=== PATIENT | female | born 1940 | race Caucasian/White ===

== ENCOUNTER 2022-12-31 21:32 | Emergency (ER) | payer MEDICARE ==
[2022-12-31] MEDS ORDERED: Sodium Chloride 0.9% 10 ML Syringe FLUSH PRN (21:38)
[2022-12-31] MEDS ORDERED: Aspirin 81 MG Tab.Chew PO ONE (21:47)
[2022-12-31] MEDS ORDERED: Nitroglycerin 0.4 MG Tab.SL SL ONE ×2 (21:58→22:36)
[2022-12-31 22:14] LABS: TROPONIN I HIGH SENSITIVITY 23.5 pg/mL (<=60.3)
[2023-01-01] MEDS ORDERED: Heparin Sodium 5,000 Units/ML Vial IVPUSH ONE (00:23)
[2023-01-01] MEDS ORDERED: Morphine 2 MG/ML SYRINGE IVPUSH ONE (00:24)
[2023-01-01] MEDS ORDERED: Sodium Chloride 0.9% 1,000 ML IV SCH (00:30)
[2023-01-01] MEDS ORDERED: Heparin Sodium/D5W 25,000 UNITS/500 ML BAG IV SCH (00:30)
[2023-01-01] MEDS ORDERED: Nitroglycerin/D5W 25 MG/250 ML BOTTLE IV SCH (00:45)
== END 2023-01-01 02:00 ==
LOC: JP.ED 21:32
DX: I21.4 Non-ST elevation (NSTEMI) myocardial infarction (principal); E78.5 Hyperlipidemia, unspecified; I10 Essential (primary) hypertension; Z88.1 Allergy status to other antibiotic agents; Z88.2 Allergy status to sulfonamides; Z91.040 Latex allergy status; Z79.899 Other long term (current) drug therapy
CPT/HCPCS: 36415; 71045; 80048; 84484; 85025; 85610; 85730; 93005; 96365; 96368; 96375; 99285; A9270; J1644; J3490; J7030

== ENCOUNTER 2023-01-08 16:45 | Emergency (ER) | payer MEDICARE ==
[2023-01-08] MEDS ORDERED: Nitroglycerin 0.4 MG Tab.SL SL ONE (17:05)
== END 2023-01-08 17:53 | disposition home or self-care (01) ==
LOC: JP.ED 16:45
DX: I51.81 Takotsubo syndrome (principal); I25.2 Old myocardial infarction; M19.90 Unspecified osteoarthritis, unspecified site; E11.9 Type 2 diabetes mellitus without complications; Z88.8 Allergy status to other drugs, medicaments and biological substances; Z91.040 Latex allergy status; Z88.2 Allergy status to sulfonamides; Z79.82 Long term (current) use of aspirin; Z79.899 Other long term (current) drug therapy
CPT/HCPCS: 99284; A9270

== ENCOUNTER 2023-02-23 14:59 | Emergency (ER) | payer MEDICARE | END 2023-02-23 16:14 | disposition home or self-care (01) | LOC: JP.ED 14:59 | DX: R07.89 Other chest pain (principal); E78.00 Pure hypercholesterolemia, unspecified; I25.10 Atherosclerotic heart disease of native coronary artery without angina pectoris; I10 Essential (primary) hypertension; E11.9 Type 2 diabetes mellitus without complications; Z88.8 Allergy status to other drugs, medicaments and biological substances; Z91.040 Latex allergy status; Z88.2 Allergy status to sulfonamides; Z90.710 Acquired absence of both cervix and uterus | CPT/HCPCS: 36415; 84484; 93005; 99285 ==